=== PATIENT | male | born 1990 | race Hispanic/Latino ===

== ENCOUNTER 2021-05-14 12:54 | Emergency (ER) | payer SELFPAY ==
[2021-05-14 13:09] VITALS: BP 126/71; PULSE 91; RESP 16; TEMP 36.8; O2SAT 99
--- NOTE | 2021-05-14 13:38 | ED.SKABFB ---
HPI - Skin/Abscess/Foreign Bdy General Chief complaint: Skin/Abscess/Foreign Body Stated complaint: poison zhane Time Seen by Provider: 05/14/21 13:33 Source: patient and RN notes reviewed Mode of arrival: ambulatory Limitations: no limitations History of Present Illness HPI narrative: Patient presents today complaining of poison zhane to the bilateral arms and right neck x2 days. Reports diffuse itching. He has tried [id number] topical cream, bleach, and rubbing alcohol without much relief. Denies shortness of breath, difficulty swallowing, facial swelling. MD complaint: rash Related Data Allergies Allergy/AdvReac Type Severity Reaction Status Date / Time No Known Allergies Allergy Verified 05/14/21 13:35 Review of Systems Review of Systems: Narrative: CONSTITUTIONAL: Denies body aches, fever, chills, or sweats. EYES: Denies visual changes, redness, or discharge. ENT: Denies rhinorrhea, congestion, sore throat, or otalgia. CARDIOVASCULAR: Denies chest pain, palpitations, or edema. RESPIRATORY: Denies cough or dyspnea. GASTROINTESTINAL: Denies abdominal pain, nausea, vomiting, or diarrhea. GENITOURINARY: Denies dysuria or hematuria. SKIN: + Pruritic rash MUSCULOSKELETAL: Denies back pain, joint pain, or myalgia. NEUROLOGIC: Denies headache, numbness, tingling, or weakness. PSYCH: Denies depression or anxiety. PMFSH Comments At time of signature, I have reviewed and agree with nursing past medical, surgical, social and family history unless otherwise noted. Please see nursing chart for further information. There is no relevant family history pertinent to the presenting complaint Exam Narrative: Exam Narrative: GENERAL: Well-appearing, well-nourished, and in no acute distress. HEAD: Normocephalic, atraumatic. EYES: EOMI. No redness or drainage. Conjunctivae normal. ENT: Mucous membranes pink and moist. NECK: Normal AROM. Supple. No lymphadenopathy. CHEST: No respiratory distress. Clear to auscultation. HEART: Regular rate and rhythm. No murmur appreciated. Normal peripheral pulses. ABDOMEN: Soft, nontender, nondistended, normal active bowel sounds. MUSCULOSKELETAL: No bony tenderness. EXTREMITIES: Normal range of motion. No edema. SKIN: Warm, dry. Capillary refill normal. Normal skin turgor. Erythematous papular rash to bilateral upper and lower arms as well as the right neck. No signs of bacterial infection. NEURO: No focal deficits. Alert and oriented x3. Gait steady. PSYCH: Normal affect. No signs of depression or anxiety. Course Vital Signs Vital signs: Vital Signs Temperature 98.2 F 05/14/21 13:09 Pulse Rate 91 05/14/21 13:09 Respiratory Rate 16 05/14/21 13:09 Blood Pressure 126/71 05/14/21 13:09 Pulse Oximetry 99 05/14/21 13:09 Temperature 98.2 F 05/14/21 13:09 Pulse Rate 91 05/14/21 13:09 Respiratory Rate 16 05/14/21 13:09 Blood Pressure 126/71 05/14/21 13:09 Pulse Oximetry 99 05/14/21 13:09 Reviewed. Pt has been instructed to follow up with his PCP regarding his elevated blood pressure today. MDM - Skin/Abscess/Foreign Bdy Differential Diagnosis Differential diagnosis: Likely abscess of skin or subcutaneous tissue, viral exanthem, urticaria, cellulitis, eczema, insect bites, impetigo and contact dermatitis Critical Care Time Critical Care Time Critical Care Time: No Discharge Plan Discharge Clinical Impression: Poison zhane dermatitis Patient Disposition: Home, Self-Care Condition: Stable Instructions: Poison Zhane (ED) Additional Instructions: Please take the prednisone as directed until gone. Take Benadryl for itching. Do not drive within 6 hours of taking the Benadryl as it can make you drowsy. Do not use bleach or rubbing alcohol any longer. Monitor for any signs of infection such as redness, swelling, increased pain or drainage, and see your doctor if you note any. Your blood pressure was elevated above 120/80 today at [facility]gent Care
== END 2021-05-14 13:45 | disposition home or self-care (01) ==
PROVIDERS: Emergency Provider Nurse Practitioner
DX: L23.7 Allergic contact dermatitis due to plants, except food (principal)
CPT/HCPCS: 99203; G0463